=== PATIENT | male | born 1950 | race Caucasian/White ===

== ENCOUNTER 2024-05-19 08:00 | Outpatient (CLI) | payer MEDICARE | END 2024-05-19 08:01 | disposition home or self-care (01) | LOC: PET 08:00 | PROVIDERS: ATTEND Internal Medicine Hematology & Oncology | DX: C91.11 Chronic lymphocytic leukemia of B-cell type in remission (principal); C43.39 Malignant melanoma of other parts of face; R59.0 Localized enlarged lymph nodes | CPT/HCPCS: 78816; A9552 ==

== ENCOUNTER 2025-03-11 08:39 | Outpatient (CLI) | payer MEDICARE ==
[2025-03-11 09:55] LABS: INR-International Normal Ratio 1.0; Prothrombin Time 13.3 sec (12.0-14.7)
[2025-03-11 09:56] LABS: PTT 24.8 sec (22.9-36.1)
[2025-03-11 09:59] LABS: Hematocrit 38.3 % (42.0-52.0); Hemoglobin 12.3 g/dL (14.0-18.0); Mean Corpuscular Hemoglobin 30.1 pg (27.0-31.0); Mean Corpuscular Volume 93.9 fL (78.0-98.0); Platelet Count 128 10x3/uL (130-400); Red Blood Cell (RBC) Count 4.08 mill/uL (4.70-6.10); White Blood Cell (WBC) Count 65.18 10x3/uL (4.8-10.8)
[2025-03-11 10:48] LABS: Ovalocytes SLIGHT = 2-5 cells HPF (0-1); Platelet Adequacy Comment Platelets Normal; Smudge Cells 68.0 %; Spherocytes SLIGHT = 1-5 cells HPF (None Seen)
[2025-03-11] MEDS ORDERED: Iopamidol 370 76% 100 ML VIAL ONE (13:45)
== END 2025-03-11 11:30 | disposition home or self-care (01) ==
LOC: CT 08:39
PROVIDERS: ATTEND Internal Medicine Hematology & Oncology
DX: C91.11 Chronic lymphocytic leukemia of B-cell type in remission (principal); C43.39 Malignant melanoma of other parts of face; R59.0 Localized enlarged lymph nodes; R93.7 Abnormal findings on diagnostic imaging of other parts of musculoskeletal system
CPT/HCPCS: 36415; 38222; 71260; 74177; 77002; 77012; 85025; 85610; 85730; 88184; 88237; 88264; 88280

== ENCOUNTER → 2025-03-11 | Day surgery (SDC) | payer MEDICARE ==
[~2025-03-11] MED LIST: Lidocaine 1% w/Epinephrine 1:100K 20 ML VIAL ONE; Sodium Bicarbonate 2.5 MEQ/5 ML SDV ONE
== END ==
LOC: CT 09:48
PROVIDERS: ATTEND Internal Medicine Hematology & Oncology
PROC: 079T3ZX Drainage of Bone Marrow, Percutaneous Approach, Diagnostic (ICD-10-PCS; principal; 2025-03-11)
DX: C91.11 Chronic lymphocytic leukemia of B-cell type in remission (principal); C43.39 Malignant melanoma of other parts of face
CPT/HCPCS: 38222; 71260; 74177; 77002; 77012; 85025; 85097; 85610; 85730; C1830; Q9967; 36415; 88184; 88185; 88189; 88237; 88264; 88280; 88305; 88311; 88313; 88341; 88342; J3010